=== PATIENT | male | born 1975 | race Caucasian/White ===

== ENCOUNTER 2016-12-19 19:08 | Emergency (ER) | payer OTHER | END 2016-12-19 20:30 | disposition home or self-care (01) | LOC: ER1 19:08 | DX: J06.9 Acute upper respiratory infection, unspecified (principal) | CPT/HCPCS: 87081; 87880; 99283 ==

== ENCOUNTER 2021-08-10 17:10 | Emergency (ER) | payer OTHER ==
[~2021-08-10 17:10] MED LIST: BACTRIM DS TAB1 EACH PO; GLUCOPHAGE 850850 MG PO; KEFLEX CAP 500500 MG PO; KEFLEX500 MG PO; NAPROSYN500 MG PO; VIBRAMYCIN100 MG PO
[2021-08-10 18:05] LABS: HEMOGLOBIN 13.5 gm/dl (14.0-17.5); RED BLOOD COUNT 4.48 M/UL (4.20-5.50); WHITE BLOOD COUNT 9.9 K/UL (4.5-11.0)
[2021-08-10 18:21] LABS: BUN/CREATININE RATIO 8 (0-10)
== END 2021-08-10 17:32 | disposition left against medical advice (07) ==
LOC: ER1 17:10
PROVIDERS: Physician Assistant
DX: R51.9 Headache, unspecified (principal); R53.83 Other fatigue; Z20.822 Contact with and (suspected) exposure to COVID-19
CPT/HCPCS: 80053; 82962; 85025; 99284; U0002

== ENCOUNTER → 2021-09-20 | Outpatient (CLI) | payer OTHER | LOC: KOH-I 11:17 | DX: R06.02 Shortness of breath (principal); M25.562 Pain in left knee; M17.12 Unilateral primary osteoarthritis, left knee; R09.89 Other specified symptoms and signs involving the circulatory and respiratory systems | CPT/HCPCS: 71046; 73560 ==